=== PATIENT | female | born 1985 | race African-American/Black ===

== ENCOUNTER 2017-02-22 22:45 | Inpatient (IN) | payer OTHER ==
[~2017-02-22 22:45] MED LIST: DEXTROSE 5%-LACTATED RINGERS 1,000 ML IV ONE
[2017-02-23 00:33] LABS: BASOPHIL 0.2 % (0-2.0); EOSINOPHIL 0.7 % (0-4.5); MCH 32.3 pg (25.7-33.7); MCHC 34.5 g/dl (32.0-36.0); MEAN CELL VOLUME 93.7 fl (80-96); MEAN PLT VOLUME 8.9 fl (7.5-11.1); NEUTROPHILS 72.8 % (42.8-82.8); PLATELET COUNT 171 K/MM3 (134-434); RDW 13.4 % (11.6-15.6); WHITE BLOOD COUNT 8.9 K/mm3 (4.0-10.0)
[2017-02-23 00:43] VITALS: BMI 30.8
[2017-02-23] MEDS ORDERED: ELECTROLYTE-148 SOLN 1,000 ML IV SCH (00:45)
[2017-02-23] MEDS ORDERED: CITRIC ACID/SODIUM CITRATE 30 ML UNIT-DOSE CUP PO ONE (00:45)
[2017-02-23 00:48] LABS: INR 0.92 (0.82-1.09); PROTHROMBIN TIME (PATIENT) 10.1 SEC (9.98-11.88)
[2017-02-23 00:50] LABS: ACTIVATED PTT 24.8 SECONDS (26.9-34.4)
[2017-02-23 00:56] LABS: ANION GAP 10 (8-16); CALCIUM 8.2 mg/dL (8.5-10.1); CO2 24 mmol/L (21-32); CREATININE 0.5 mg/dL (0.55-1.02); GLUCOSE,RANDOM 98 mg/dL (74-106)
--- NOTE | 2017-02-23 00:56 | HP ---
Past Medical History - Primary Care Physician PCP:: Derek Bear - Admission Chief Complaint: 32yo P2 with at EGA 38w4d and previous section x 2 admitted with spontaneous labor. History of Present Illness: Painful contractions since 9:30pm, no LOF, no VB. History Source: Patient, Medical Record Limitations to Obtaining History: No Limitations - Past Medical History ASIC ENGINEER: No: Alzheimer's, CVA, Dementia, Migraine, Multiple Sclerosis, Peripheral Neuropathy, Parkinson's, Seizure, Syncope, TIA, Vertigo, Other Cardiovascular: No: AFIB, Aneurysm, Aortic Insufficiency, Aortic Stenosis, CAD, CHF, Deep Vein Thrombosis, HTN, Hyperlipdemia, MA, Mitral Insufficiency, Mitral Stenosis, Murmur, Pulmonary Hypertension, Other Pulmonary: No: Asthma, Bronchitis, Cancer, COPD, O2 Dependent, Pneumonia, Previously Intubated, Pulmonary Embolus, Pulmonary Fibrosis, Sleep Apnea, Other Gastrointestinal: No: Ascites, Cancer, Constipation, Crohn's Disease, Diverticulitis, Diverticulosis, Esophageal Varices, Gastritis, GERD, GI Bleed, Hemorrhoids, Hiatal Hernia, Inflamatory Bowel Disease, Irritable Bowel Disease, Pancreatitis, Peptic Ulcer Disease, Ulcerative Colitis, Other Hepatobiliary: No: Cirrhosis, Cholelithiasis, Cholecystitis, Choledocholithiasis , Hepatitis A, Hepatitis B, Hepatitis C, Other Renal/: No: Renal Failure, Renal Inusuff, BPH, Cancer, Hematuria, Hemodialysis , Neurogenic Bladder, Renal Calculi, UTI, Other Reproductive: No: Ectopic , Endometriosis, Fibroids, PID, Polycystic Ovary Syndrome, Postmenopausal, Other ...: 3 ...Para: 2 ...Term: 2 ...: 0 ...Spon : 0 ...Induced : 0 ...Multiple Gestation: 0 ...LMP: 05/31/16 ... Weeks Gestation by Dates: 38.5 ...EDC by Sono: 03/07/17 Heme/Onc: No: Anemia, B12 Deficiency, Bleeding Disorder, Cancer, Current Chemotherapy, Current Radiation Therapy, Hemochromatosis, Hypercoaguable State, Myeloproliferative Synd, Sickle Cell Disease, Sickle Cell Trait, Thrombocytopenia, Other Infectious Disease: No: AIDS, C-Diff, Herpes Zoster, HIV, MRSA, STD's, Tuberculosis, VREF, Other Psych: No: Addictions, Anxiety, Bipolar, Depression, Panic, Psychosis, Schizophrenia, Other Musculoskeletal: No: Bursitis, Chronic low back pain, Hemiparesis, Hemiplegia, Osteoarthritis, Paraplegia, Other Rheumatology: No: Fibromyalgia, Gout, Lupus, Rheumatoid Arthritis, Sarcoidosis, Vasculitis, Other ENT: No: Allergic Rhinitis, Sinusitis, Other Endocrine: No: Ho's Disease, Lori's Disease, Diabetes Insipidus, Diabetes Mellitus, Hyperparathyroidism, Hyperthyroidism, Hypothyroidism, Osteopenia, SIADH, Other Dermatology: No: Basal Cell, Cellulitis, Eczema, Melanoma, Psoriasis, Squamous Cell, Other - Past Surgical History Past Surgical History: Yes: (x 2) Hx Myomectomy: No Hx Transabdominal Cerclage: No - Smoking History Smoking history: Never smoked Have you smoked in the past 12 months: No Aproximately how many cigarettes per day: 0 - Alcohol/Substance Use Hx Alcohol Use: No History of Substance Use: reports: None - Social History Usual Living Arrangement: Yes: With Spouse, With Child ADL: Independent Occupation: nurses aid History of Recent Travel: No Home Medications - Allergies Allergies/Adverse Reactions: Allergies Allergy/AdvReac Type Severity Reaction Status Date / Time No Known Allergies Allergy Verified 02/23/16 07:51 - Home Medications Home Medications: Ambulatory Orders Ferrous Gluconate [Iron] 256 mg PO BID 02/23/16 Vit #76/Iron,Carb/FA [Pnv 29-1 Tablet] 1 each PO DAILY 02/23/16 Docusate Sodium [Colace -] 100 mg PO BID PRN #14 capsule 02/26/16 Oxycodone HCl/Acetaminophen [Percocet 5-325 mg Tablet -] 1 - 2 tab PO Q6H #30 tab MDD 6 02/26/16 Family Disease History - Family Disease History Family History: Denies Review of Systems - Review of Systems Constitutional: reports: Other (labor, pianful contractions) Eyes: reports: No Symptoms HENT: reports: No Symptoms Neck: reports: No Symptoms Cardiovascular: reports: No Symptoms Respiratory: reports: No Symptoms Gastrointestinal: reports: No Symptoms Genitourinary: reports: No Symptoms Breasts: reports: No Symptoms Reported Musculoskeletal: reports: No Symptoms Integumentary: reports: No Symptoms Neurological: reports: No Symptoms Endocrine: reports: No Symptoms Hematology/Lymphatic: reports: No Symptoms Psychiatric: reports: No Symptoms Pain Intensity: 8 Physical Exam - Maternity Vital Signs: Vital Signs Temperature 99 F 02/23/17 00:00 Pulse Rate 84 02/23/17 00:00 Respiratory Rate 20 02/23/17 00:00 Blood Pressure 120/72 02/23/17 00:00 O2 Sat by Pulse Oximetry (%) Constitutional: Yes: Well Nourished, No Distress, Calm Eyes: Yes: WNL, Conjunctiva Clear HENT: Yes: WNL, Atraumatic, Normocephalic Neck: Yes: WNL, Supple, Trachea Midline Cardiovascular: Yes: WNL, Regular Rate and Rhythm Lungs: Clear to auscultation, Normal air movement Breast(s): Yes: WNL - Abdominal Exam/OB Fundal Height: 39 Number of Fetuses: Single Presentation: Vertex Contractions: Yes Regularity: Regular Intensity: Mod/Strong Monitor Mode: External Heart Rate (range): 145 Heart Rate Location: Midline Category: II Accelerations: Non-Uniform Decelerations: Variable - Vaginal Exam/OB Vaginal Bleediing: No Speculum Exam: No Presentation: Vertex/Position - Physical Exam Musculoskeletal: Yes: WNL Extremities: Yes: WNL Edema: No Deep Tendon Reflex Grade: Normal +2 ...Motor Strength: WNL Psychiatric: Yes: WNL, Alert, Oriented - Labs Lab Results: CBC, BMP 02/23/17 00:05 Hemorrhage Risk Assessment - Risk Factors Medium Risk Factors: Yes: Prior , uterine surgery,or multiple laparotomies High Risk Factors: Yes: None Risk Score: 1 Risk Level: Medium Risk Imaging - Results Ultrasound: Report Reviewed Assessment/Plan 32yo P2 with at EGA 38w5d and previous section x 2 admitted with spontaneous labor. The pt declined . The decision was made to proceed with delivery by C/S. We discussed the risks and benefits of C/S at length, including but not limited to scarring, pain, bleeding, infection, injury to underlying organs and structures, need for additional surgery to repair/treat any problems or complications, complications/injuries, etc. The pt verbalized her understanding and requested to proceed with surgery
[2017-02-23 01:22] LABS: HIV 1 & 2 AB NEGATIVE; HIV 1 AGp24 NEGATIVE
[2017-02-23] MEDS ORDERED: ONDANSETRON 4 MG/2 ML VIAL IVPB PRN (02:43)
[2017-02-23] MEDS ORDERED: OXYTOCIN 20 UNITS in 0.9% NS 1,000 ML IV ONE (03:00)
--- NOTE | 2017-02-23 08:11 | PN ---
Progress Note (short form) - Note Progress Note: Anesthesia POD#1 S/P Repeat under Spinal A and Duramorph VSS,no N/V,pain is under control,some itch is present. Benedryl is given. Full lower extremities strength. Karla Hatfield MD.
--- NOTE | 2017-02-23 08:50 | PN ---
Delivery - Delivery Section: Low Flap Transverse Type of Anesthesia: Spinal Episiotomy/Laceration: None EBL (cc): 600 Delivery, Single - Stages of Labor Date 1st Stage Initiatied: 02/22/17 Time 1st Stage Initiated: 21:30 Date of Delivery: 02/23/17 Time of Delivery: 01:42 Time Placenta Delivered: 01:45 Placenta: Yes: Manual Removal, Normal Configuration - Condition of Order Desk Clerk/Senior Support Analyst Present: Yes Name: Yumiko Gutierres Gender: Male Weight: 3.317 kg Position: OA Total Hours ROM (Hrs/Mins): 5 MINS - 1 Minute Total Score: 9 5 Minutes Total Score: 9 - [place] Feeding Plan Initial Plan: Elected not to breastfeed exclusively throughout hospitalization Remarks - Remarks Remarks: Thin low uterine segment, "window. The pt was informed of findings and advised of high risks with future pregnancies.
--- NOTE | 2017-02-23 08:54 | OP ---
Operative Note - Note: Operative Date: 02/23/17 Pre-Operative Diagnosis: at EGA 38w4d with previous C/S in spontaneous labor Operation: Repeat LT C/S Findings: Live baby boy in vtx presentation. Thin low uterine segment. Normal tubes and ovaries Post-Operative Diagnosis: Same as Pre-op Surgeon: Derek Bear Cylinder Handler: Min Weinstein Anesthesiologist/PHARMACEUTICAL SALESPERSON: Kimmie Ramirez Anesthesia: Spinal Specimens Removed: Placenta Estimated Blood Loss (mls): 600 Drains & Tubes with Location: Dom[place] Cath Drains, Volume Out (mls): 100 Blood Volume Replaced (mls): 0 Fluid Volume Replaced (mls): 2,000 Operative Report Dictated: Yes
[2017-02-23] MEDS: IBUPROFEN 600 MG TABLET (FP) PO PRN ×2 (11:09→20:12)
[2017-02-23] MEDS: ACETAMINOPHEN 325 MG TABLET (FP) PO PRN ×2 (11:10→20:12)
[2017-02-24] MEDS ORDERED: oxyCODONE HCL 5 MG TABLET ONE (03:36)
[2017-02-24] MEDS: oxyCODONE HCL 5 MG TABLET PO PRN ×4 (03:38→21:11)
[2017-02-24] MEDS: ACETAMINOPHEN 325 MG TABLET (FP) PO PRN ×4 (03:39→21:11)
[2017-02-24] MEDS ORDERED: FLU VACCINE QUAD 60 MCG/0.5 ML (MDV 17-18) IM ONE (10:00)
[2017-02-24] MEDS ORDERED: BISACODYL 10 MG SUPP.RECT RC PRN (10:15)
--- NOTE | 2017-02-24 10:26 | PN ---
Post Progress Note - Subjective Subjective: Patient without acute complaints. Reports tolerating oral intake without nausea or vomiting. Ambulating without dizziness. Denies fevers or chills. Pain well controlled with oral pain medication. without difficulty. Passing flatus. Post Day: 1 Type of Delivery: Repeat C/S Vital Signs: Vital Signs Temperature 99.2 F 02/23/17 21:28 Pulse Rate 74 02/23/17 21:28 Respiratory Rate 22 02/23/17 21:28 Blood Pressure 118/65 02/23/17 21:28 O2 Sat by Pulse Oximetry (%) 96 02/23/17 20:30 Breast Exam: Yes: Engorged Uterus: Yes: Fundus Firm, Fundus below umbilicus Incision: Yes: Dressing dry and intact Abdomen/GI: Yes: Abdomen soft, Tender (incisional), Passing flatus, Tolerating PO Lochia: Yes: Serosa Lochia, amount: Small Extremities: Yes: Calves non-tender, Edema (trace) Activity: Ambulating - Labs Labs: CBC WBC 8.9 K/mm3 (4.0-10.0) 02/23/17 00:05 RBC 4.15 M/mm3 (3.60-5.2) 02/23/17 00:05 Hgb 13.4 GM/dL (10.7-15.3) D 02/23/17 00:05 Hct 38.9 % (32.4-45.2) 02/23/17 00:05 MCV 93.7 fl (80-96) 02/23/17 00:05 MCH 32.3 pg (25.7-33.7) 02/23/17 00:05 MCHC 34.5 g/dl (32.0-36.0) 02/23/17 00:05 RDW 13.4 % (11.6-15.6) 02/23/17 00:05 Plt Count 171 K/MM3 (134-434) 02/23/17 00:05 MPV 8.9 fl (7.5-11.1) 02/23/17 00:05 Neutrophils % 72.8 % (42.8-82.8) 02/23/17 00:05 Lymphocytes % 18.0 % (8-40) D 02/23/17 00:05 Monocytes % 8.3 % (3.8-10.2) D 02/23/17 00:05 Eosinophils % 0.7 % (0-4.5) 02/23/17 00:05 Basophils % 0.2 % (0-2.0) 02/23/17 00:05 Assessment/Plan 32 yo POD # 1 s/p repeat CD, afebrile, vital signs stable, doing well 1. Continue routine postoperative care. 2. AM CBC stable 3. Rh positive status, no rhogam indicated. 4. Encourage ambulation and incentive spirometer use 5. Continue oral pain medication 6. Anticipate discharge home postoperative day #3 or #4
[2017-02-24] MEDS ORDERED: BISACODYL 10 MG SUPP.RECT RC ONE (10:43)
[2017-02-24] MEDS ORDERED: DOCUSATE SODIUM 100 MG CAPSULE (FP) PO PRN (10:43)
[2017-02-24] MEDS: IBUPROFEN 600 MG TABLET (FP) PO PRN ×2 (10:44→17:41)
[2017-02-24] MEDS ORDERED: BENZOCAINE 28 GM HEMORRHOIDAL OINTMENT TP PRN (10:50)
[2017-02-24] MEDS ORDERED: WITCH HAZEL 50% (TUCKS) 40 PAD/JAR PAD TP PRN (10:50)
[2017-02-24] MEDS ORDERED: BENZOCAINE 20% 57 GM BOTTLE TP PRN (10:50)
[2017-02-24] MEDS ORDERED: METHYLERGONOVINE MALEATE 0.2 MG/1 ML AMP IM PRN (10:50)
[2017-02-24 10:54] LABS: MCH 32.2 pg (25.7-33.7); MEAN CELL VOLUME 94.7 fl (80-96); MEAN PLT VOLUME 8.6 fl (7.5-11.1); PLATELET COUNT 171 K/MM3 (134-434); RDW 13.8 % (11.6-15.6); WHITE BLOOD COUNT 11.3 K/mm3 (4.0-10.0)
[2017-02-24] MEDS ORDERED: DIPHTH,PERTUSS(ACELL),TET 0.5 ML DISP.SYRIN IM ONE (11:30)
[2017-02-24] MEDS ORDERED: FLU VACC QS2017-18 36MOS UP/PF 60 MCG/0.5 ML SYRINGE IM ONE (11:30)
[2017-02-24] MEDS: SIMETHICONE 80 MG TAB.CHEW (FP) PO PRN ×3 (17:41→21:10)
[2017-02-24] MEDS: SENNOSIDES/DOCUSATE COMBO (SENNA PLUS) TABLET (UD) PO PRN (21:11)
[2017-02-25] MEDS: oxyCODONE HCL 5 MG TABLET PO PRN ×5 (01:36→21:01)
[2017-02-25] MEDS: SIMETHICONE 80 MG TAB.CHEW (FP) PO PRN ×5 (01:37→21:01)
[2017-02-25] MEDS: ACETAMINOPHEN 325 MG TABLET (FP) PO PRN ×3 (01:37→21:01)
--- NOTE | 2017-02-25 08:11 | PN ---
Progress Note (short form) - Note Progress Note: pod 2 doing well, no excess vaginal bleeding CBC, BMP 02/24/17 10:07 02/23/17 00:05 abdomen soft, no distension, no cva . incision dry, clean no calf tenderness no excess vaginal bleeding plan ambulate , advance diet pain management
[2017-02-25 08:34] LABS: BASOPHIL 0.2 % (0-2.0); EOSINOPHIL 2.1 % (0-4.5); MCH 32.1 pg (25.7-33.7); MCHC 34.1 g/dl (32.0-36.0); MEAN CELL VOLUME 94.2 fl (80-96); MEAN PLT VOLUME 8.2 fl (7.5-11.1); NEUTROPHILS 62.3 % (42.8-82.8); PLATELET COUNT 173 K/MM3 (134-434); RDW 14.1 % (11.6-15.6); WHITE BLOOD COUNT 9.9 K/mm3 (4.0-10.0)
[2017-02-25] MEDS: PRENATAL VITAMINS W/ FOLIC ACID TABLET (FP) PO SCH (11:06)
[2017-02-25] MEDS: IBUPROFEN 600 MG TABLET (FP) PO PRN ×2 (11:07→17:14)
--- NOTE | 2017-02-25 13:36 | PATH ---
Surgical Pathology Report Patient Name: DAY CELESTE Med. Rec. #: [id number] /Age/Gender: 1985 (Age: 32) / F Account: [id number] Location: [facility] OBS/PATIENT BILLER Taken: 02/23/2017 Received: 02/23/2017 Reported: 02/25/2017 Physicians: Derek Bear M.D. Specimen(s) Received PLACENTA Clinical History 38.1 weeks' gestation in labor, c/section x2 2008, 2015 Repeat c/section Final Diagnosis PLACENTA, DELIVERY: INTACT THIRD TRIMESTER PLACENTA WITH MILD INCREASE IN PREVILLOUS AND PRECHORIONIC FIBRIN DEPOSITION, THREE VESSEL UMBILICAL CORD, AND PLACENTAL MEMBRANES WITH FOCAL AMNION HYPERPLASIA. Electronically Signed Earnest Valentino M.D. Gross Description The specimen is received fresh, labeled "placenta" and is a 440 gram, 16.5 x 13.5 x 3.0 cm placenta with attached membranes and umbilical cord. The attached membranes are andres, translucent with focal opacities and insert marginally. The umbilical cord measures 15 cm. in length and averages 1.2 cm. in diameter. The cord inserts eccentrically, 4.5 cm. to the nearest margin. No true knots or strictures are identified. Cut surface of the umbilical cord reveals 3 vessels. The surface is will-blue with fibrin deposition and appropriate caliber vessels. The maternal surface is red-brown and intact. Sectioning reveals red-brown, spongy parenchyma. No focal lesions are identified. Scarifier Operator sections are submitted in three cassettes as follows: 1- membrane rolls and umbilical cord; 2-3- full thickness sections of placenta. /02/24/2017 [facility] [place]02/24/2017
[2017-02-25] MEDS: SENNOSIDES/DOCUSATE COMBO (SENNA PLUS) TABLET (UD) PO PRN (21:01)
[2017-02-26] MEDS: ACETAMINOPHEN 325 MG TABLET (FP) PO PRN ×2 (01:41→06:26)
[2017-02-26] MEDS: oxyCODONE HCL 5 MG TABLET PO PRN ×4 (01:41→20:29)
[2017-02-26] MEDS: SIMETHICONE 80 MG TAB.CHEW (FP) PO PRN ×4 (01:41→20:28)
[2017-02-26] MEDS: PRENATAL VITAMINS W/ FOLIC ACID TABLET (FP) PO SCH (09:55)
[2017-02-26] MEDS: IBUPROFEN 600 MG TABLET (FP) PO PRN ×3 (09:55→20:29)
--- NOTE | 2017-02-26 21:04 | PN ---
Post Progress Note - Subjective Subjective: No complaints Post Day: 3 Type of Delivery: Repeat C/S Vital Signs: Vital Signs Temperature 99 F 02/26/17 20:35 Pulse Rate 71 02/26/17 20:35 Respiratory Rate 18 02/26/17 20:35 Blood Pressure 124/77 02/26/17 20:35 O2 Sat by Pulse Oximetry (%) 96 02/23/17 20:30 Breast Exam: Yes: Soft Uterus: Yes: Fundus Firm, Fundus below umbilicus Incision: Yes: Sutures intact Abdomen/GI: Yes: Abdomen soft, Passing flatus, Tolerating PO Lochia: Yes: Rubra Lochia, amount: Small Extremities: Yes: Edema (trace) Perineum: Yes: Intact Activity: Ambulating - Labs Labs: CBC WBC 9.9 K/mm3 (4.0-10.0) 02/25/17 08:00 RBC 3.71 M/mm3 (3.60-5.2) 02/25/17 08:00 Hgb 11.9 GM/dL (10.7-15.3) 02/25/17 08:00 Hct 35.0 % (32.4-45.2) 02/25/17 08:00 MCV 94.2 fl (80-96) 02/25/17 08:00 MCH 32.1 pg (25.7-33.7) 02/25/17 08:00 MCHC 34.1 g/dl (32.0-36.0) 02/25/17 08:00 RDW 14.1 % (11.6-15.6) 02/25/17 08:00 Plt Count 173 K/MM3 (134-434) 02/25/17 08:00 MPV 8.2 fl (7.5-11.1) 02/25/17 08:00 Neutrophils % 62.3 % (42.8-82.8) 02/25/17 08:00 Lymphocytes % 26.8 % (8-40) D 02/25/17 08:00 Monocytes % 8.6 % (3.8-10.2) 02/25/17 08:00 Eosinophils % 2.1 % (0-4.5) D 02/25/17 08:00 Basophils % 0.2 % (0-2.0) 02/25/17 08:00 Assessment/Plan 32yo P2 s/p repeat LT C/S, doing well stable, afebrile. Postop and instructions reviewed. Breast feeding encouraged. Continue routine care.
[2017-02-26] MEDS: SENNOSIDES/DOCUSATE COMBO (SENNA PLUS) TABLET (UD) PO PRN (21:15)
[2017-02-27] MEDS: IBUPROFEN 600 MG TABLET (FP) PO PRN ×2 (04:38→09:36)
[2017-02-27] MEDS: ACETAMINOPHEN 325 MG TABLET (FP) PO PRN ×2 (04:38→09:37)
[2017-02-27] MEDS: SIMETHICONE 80 MG TAB.CHEW (FP) PO PRN ×2 (04:38→09:36)
[2017-02-27 08:23] VITALS: BP 130/80; PULSE 65; TEMP 97.5
[2017-02-27] MEDS: PRENATAL VITAMINS W/ FOLIC ACID TABLET (FP) PO SCH (09:36)
--- NOTE | 2017-02-27 10:33 | DS ---
Physical Exam-DRAPERY HEMMER AUTOMATIC Vital Signs: Vital Signs Temperature 97.5 F L 02/27/17 08:22 Pulse Rate 65 02/27/17 08:22 Respiratory Rate 18 02/27/17 08:22 Blood Pressure 130/80 02/27/17 08:22 O2 Sat by Pulse Oximetry (%) 96 02/23/17 20:30 Constitutional: Yes: Well Nourished, No Distress, Calm Eyes: Yes: WNL, Conjunctiva Clear HENT: Yes: WNL, Atraumatic, Normocephalic Neck: Yes: WNL, Supple, Trachea Midline Cardiovascular: Yes: WNL, Regular Rate and Rhythm Respiratory: Yes: WNL, Regular, CTA Bilaterally Gastrointestinal: Yes: WNL, Normal Bowel Sounds, Soft Renal/: Yes: WNL External Genitalia: Yes: Normal ....Post : Yes: Uterus firm, Uterus non-tender Breast(s): Yes: WNL Musculoskeletal: Yes: WNL Extremities: Yes: WNL Edema: LLE: Trace, RLE: Trace Integumentary: Yes: WNL Wound/Incision: Yes: Clean/Dry, Well Approximated, Sutures Intact Neurological: Yes: WNL, Alert, Oriented ...Motor Strength: WNL Psychiatric: Yes: WNL, Alert, Oriented Labs: CBC, BMP 02/25/17 08:00 02/23/17 00:05 Delivery - Delivery Section: Low Flap Transverse Type of Anesthesia: Spinal Episiotomy/Laceration: None EBL (cc): 600 Delivery, Single - Stages of Labor Date 1st Stage Initiatied: 02/22/17 Time 1st Stage Initiated: 21:30 Date of Delivery: 02/23/17 Time of Delivery: 01:42 Time Placenta Delivered: 01:45 Placenta: Yes: Manual Removal, Normal Configuration - Condition of Infant Soft Drink Powder Mixer/Medical Claims Analyst Present: Yes Name: Yumiko Gutierres Gender: Male Weight: 3.317 kg Position: OA Total Hours ROM (Hrs/Mins): 5 MINS - 1 Minute Total Score: 9 5 Minutes Total Score: 9 - [place] Feeding Plan Initial Plan: Elected not to breastfeed exclusively throughout hospitalization Remarks - Remarks Remarks: Thin low uterine segment, "window. The pt was informed of findings and advised of high risks with future pregnancies. Discharge Summary Reason For Visit: LABOR at EGA 38w5d, spontaneous labor, previous C/S Procedures: Principal: Repeat LT C/S Hospital Course: Normal recovery Condition: Good - Instructions Diet, Activity, Other Instructions: return to MD office in 1-2 weeks, call office for an appointment. Physical activity Resume your normal everyday activity as tolerated no heavy lifting or exercise until seen by your surgeon. You may walk unlimited adrianne of and climb stairs. You may resume driving the car when you feel safe and comfortable behind the wheel. No sexual activity as instructed. Wound care If you have a bandage, leave it on, and keep dry for 48-72 hours. After that time discard the outer bandage. If they are tapes on the skin under the out of bandage leave them in place. They will peel off in the next 7 to 10 days. Do Not Peel them off. You may shower the day after surgery. If there are tapes present on the skin, you may shower over them. Diet There are no dietary restrictions. Eat healthy, high-fiber foods. Drink 6 to 8 glasses of liquid each day. This will assist in keeping your bowels are regular. Pain management You may take Tylenol or acetaminophen or Ibuprofen (for example, Motrin, Advil etc.) from my pain prescription medication is ordered should be taken as prescribed for moderate to severe pain. Call MD for any of the following: Severe pain not relieved by medication Fever of 101 or higher Excessive bleeding or drainage on dressing Inability to urinate Referrals: Richardson Crawford MD [Staff Physician] - Disposition: HOME - Home Medications Comprehensive Discharge Medication List: Ambulatory Orders Ferrous Gluconate [Iron] 256 mg PO BID 02/23/16 Vit #76/Iron,Carb/FA [Pnv 29-1 Tablet] 1 each PO DAILY 02/23/16
== END 2017-02-27 11:50 | disposition home or self-care (01) | DRG 766 ==
LOC: JDEL 22:45 → JLDR 02-23 → J3W 02-23 04:13
PROVIDERS: ADMIT Obstetrics & Gynecology; ATTEND Obstetrics & Gynecology
PROC: 10D00Z1 Extraction of Products of Conception, Low, Open Approach (ICD-10-PCS; principal; 2017-02-23)
DX: O34.211 Maternal care for low transverse scar from previous cesarean delivery (principal); N85.8 Other specified noninflammatory disorders of uterus; Z3A.38 38 weeks gestation of pregnancy; Z37.0 Single live birth
CPT/HCPCS: 36415; 59025; 80048; 85025; 85027; 85610; 85730; 86593; 86850; 86900; 86901; 87389; 88307-TC; 90686; 90715; G0008